=== PATIENT | female | born 1965 | race Caucasian/White ===

== ENCOUNTER 2020-06-05 06:50 | Outpatient (NON) | payer OTHER, SELFPAY ==
[2020-06-05 22:27] LABS: SARS-CoV-2 RNA PCR Negative
== END 2020-06-05 06:51 ==
PROVIDERS: PCP Internal Medicine; Visit Provider Internal Medicine
DX: J02.9 Acute pharyngitis, unspecified (principal); R09.89 Other specified symptoms and signs involving the circulatory and respiratory systems; Z20.822 Contact with and (suspected) exposure to COVID-19
CPT/HCPCS: C9803; U0003; U0005

== ENCOUNTER 2021-09-02 20:06 | Emergency (ER) | payer OTHER, SELFPAY ==
--- NOTE | ~2021-09-02 | XR_ITS ---
EXAMINATION: XR hand RT min 3V INDICATION: Right hand pain TECHNIQUE: Three views of the right hand are obtained. COMPARISON: 01/31/2019 FINDINGS: Bone alignment is normal. There is no fracture. There is mild osteoarthritis of multiple in terphalangeal joints. Heterotopic ossification near the first interphalangeal joint appears to be pre sent on the comparison examination. There is soft tissue swelling near the first and second metacarpa ls. IMPRESSION: 1. No acute osseous abnormality. Reviewed, dictated and finalized at location F.
[2021-09-02 20:08] VITALS: BP 134/98; PULSE 100; RESP 18; TEMP 36.3; O2SAT 97
[2021-09-02 20:35] VITALS: BP 147/113; PULSE 98; RESP 14; O2SAT 96
--- NOTE | 2021-09-02 20:37 | ED.ANIMALBIT ---
HPI - Animal Bite General Chief Complaint: Animal Bite Stated Complaint: dog bite Time Seen by Provider: 09/02/21 20:32 Source: patient Mode of arrival: ambulatory Limitations: no limitations History of Present Illness HPI narrative: Pt breaking up her dogs fighting and got bit on right hand. Both dogs shots UTD and her tetanus is UTD. complaint: animal bite Animal: dog Description of animal: household pet Mechanism: bite Location - Extremities: Right: hand Context: animals fighting Related Data Home Medications Medication Instructions Recorded Confirmed Advil 05/13/19 B12 05/13/19 Pepcid 05/13/19 Vitamin D3 05/13/19 aspirin [Aspir-81] 81 mg PO DAILY 05/13/19 05/13/19 citalopram 10 mg PO DAILY 05/13/19 05/13/19 loratadine [Claritin] 10 mg PO DAILY 05/13/19 05/13/19 Allergies Allergy/AdvReac Type Severity Reaction Status Date / Time No Known Allergies Allergy Mild Verified 09/02/21 20:34 Review of Systems Review of Systems: All systems reviewed & are unremarkable except as noted in HPI and below [facility] Social History Social History (Updated 05/13/19 @ 19:10 by Stephanie Skelton CNP) Smoking status: Never smoker Exam Const: General: no acute distress Orientation/consciousness: patient oriented x3 Resp: Effort & Inspection: normal respiratory effort Auscultation: clear to auscultation bilaterally Cardio: Rate: regular rate Rhythm: regular rhythm GI: GI Palp: Yes Soft to palpation Skin: Other: bruising to hand Neuro: General: patient oriented x3, moves all extremities and no focal motor deficits Extrem: Other: two puncture bite wounds to dorsum of right hand with associated swelling able to move digits no sensory deficits bleeding controlled Psych: Appearance: grossly normal Mental Status: mental status grossly normal Thought content: Yes Normal thought content present Course Vital Signs Vital signs: Vital Signs Temperature 97.4 F L 09/02/21 20:08 Pulse Rate 100 09/02/21 20:08 Respiratory Rate 18 09/02/21 20:08 Blood Pressure 134/98 H 09/02/21 20:08 Pulse Oximetry 97 09/02/21 20:08 Temperature 97.4 F L 09/02/21 20:08 Pulse Rate 98 09/02/21 20:35 Respiratory Rate 14 09/02/21 20:35 Blood Pressure 147/113 H 09/02/21 20:35 Pulse Oximetry 96 09/02/21 20:35 Discharge Plan Discharge Clinical Impression: Dog bite Qualifiers: Encounter type: initial encounter Qualified Code(s): W54.0XXA - Bitten by dog, initial encounter Patient Disposition: Home, Self-Care Condition: Stable Instructions: Antibiotic Form, Animal Bite (ED) Prescriptions: New amoxicillin-pot clavulanate 875-125 mg tablet 1 tablet PO Q12H Qty: 20 RF: 0 hydrocodone-acetaminophen 5-325 mg tablet 1 tablet PO Q4H PRN (Reason: pain) Qty: 10 RF: 0 No Action Advil RF: 0 B12 RF: 0 citalopram 10 mg Tablet 10 mg PO DAILY RF: 0 loratadine [Claritin] 10 mg Tablet 10 mg PO DAILY RF: 0 Pepcid RF: 0 aspirin [Aspir-81] 81 mg Tablet,Delayed Release (Dr/Ec) 81 mg PO DAILY RF: 0 Vitamin D3 RF: 0 cephalexin 500 mg tablet 1,000 mg PO ONCE Qty: 2 RF: 0 cephalexin 500 mg tablet 500 mg PO Q8H Qty: 30 RF: 0 hydrocodone-acetaminophen 10-325 mg tablet 1 tablet PO Q6H PRN (Reason: pain) Qty: 20 RF: 0 Follow-up/Referrals: Arnie,Anastacio Alvarenga MD [Primary Care Provider] -
== END 2021-09-02 21:50 | disposition home or self-care (01) ==
PROVIDERS: Emergency Provider Emergency Medicine; PCP Internal Medicine
DX: S61.451A Open bite of right hand, initial encounter (principal); Z79.82 Long term (current) use of aspirin; W54.0XXA Bitten by dog, initial encounter
CPT/HCPCS: 73130; 99283

== ENCOUNTER → 2022-07-21 09:49 | Outpatient (CLI) | payer OTHER, SELFPAY ==
--- NOTE | ~2022-07-21 | US_ITS ---
Abdominal Sonogram: Real-time sonographic imaging of the abdomen was performed. Clinical History: Epigastric pain Findings: The liver appears normal with no evidence of mass lesion or bile duct dilatation. Main por joaquín vein demonstrates normal direction of flow. The spleen is normal in size without evidence of foca l lesion. The gallbladder is well distended, and and multiple echogenic gallstones. No gallbladder w all thickening evident. The common bile duct measures 6 mm. The visualized pancreas, aorta, and IVC are unremarkable. The right kidney measures 9.9 cm in length and the left kidney measures 11.4 cm. There is no hydronephrosis or renal calculus. Impression: Cholelithiasis. Reviewed, dictated and finalized at location M. Impression: Cholelithiasis.
== END ==
PROVIDERS: PCP Internal Medicine; Visit Provider Internal Medicine
DX: R10.13 Epigastric pain (principal); R11.10 Vomiting, unspecified; K80.20 Calculus of gallbladder without cholecystitis without obstruction
CPT/HCPCS: 76700

== ENCOUNTER → 2022-09-25 12:41 | Outpatient (CLI) | payer OTHER, SELFPAY ==
--- NOTE | ~2022-09-25 | MM_ITS ---
EXAMINATION: MM screening [place] BI w mason HISTORY: Screening mammogram, family history of breast cancer in her mother. TECHNIQUE: Craniocaudal and mediolateral oblique 3-D tomosynthesis images were obtained and synthetic 2-D images were generated. CAD analysis was submitted and interpreted. COMPARISON: 05/16/2019, 02/09/2018 BREAST PARENCHYMAL COMPOSITION: The breasts are heterogeneously dense, which may obscure small masses . FINDINGS: No suspicious mass, calcification, or architectural distortion are identified in either ted ast to suggest malignancy. There has been no suspicious interval change. IMPRESSION: 1. No mammographic evidence of malignancy. 2. Recommend routine screening mammography in one year. BI-RADS Category 1: Negative Reviewed, dictated and finalized at location A.
== END ==
PROVIDERS: PCP Internal Medicine; Visit Provider Internal Medicine
DX: Z12.31 Encounter for screening mammogram for malignant neoplasm of breast (principal)
CPT/HCPCS: 77063; 77067